=== PATIENT | female | born 1980 | race Caucasian/White ===

== ENCOUNTER 2016-09-13 22:53 | Emergency (ER) | payer OTHER ==
[~2016-09-13] VITALS: Ht 165.1 cm; Wt 125.0 kg
[~2016-09-13 22:53] MED LIST: LAMICTAL 25MG T25 MG PO; LEXAPRO20 MG PO; UNISOM25 MG PO
[2016-09-13 23:08] VITALS: BP 136/69; TEMP 97.8
[2016-09-13] MEDS ORDERED: PREDNISONE20 MG PO (23:37)
[2016-09-13] MEDS ORDERED: ZITHROMAX 250M250 MG PO (23:37)
[2016-09-14 00:19] VITALS: PULSE 114
== END 2016-09-14 00:19 | disposition home or self-care (01) ==
LOC: COL.ER 22:53
DX: J45.901 Unspecified asthma with (acute) exacerbation (principal); J20.9 Acute bronchitis, unspecified; F17.210 Nicotine dependence, cigarettes, uncomplicated
CPT/HCPCS: J7512

== ENCOUNTER 2016-11-30 17:16 | Emergency (ER) | payer OTHER ==
[~2016-11-30] VITALS: Ht 165.1 cm; Wt 125.0 kg
[~2016-11-30 17:16] MED LIST changes: +PREDNISONE20 MG PO; +ZITHROMAX 250M250 MG PO
[2016-11-30 17:27] VITALS: TEMP 97.3
[2016-11-30] MEDS ORDERED: ZYRTEC 10MG10 MG PO (17:46)
[2016-11-30] MEDS ORDERED: UNISOM25 MG PO (17:46)
[2016-11-30 18:48] VITALS: BP 129/74; PULSE 46
[2016-11-30] MEDS ORDERED: NORCO 325 MG-51 TAB PO (19:10)
== END 2016-11-30 20:29 | disposition home or self-care (01) ==
LOC: COL.ER 17:16
DX: S42.302A Unspecified fracture of shaft of humerus, left arm, initial encounter for closed fracture (principal); V43.62XA Car passenger injured in collision with other type car in traffic accident, initial encounter
CPT/HCPCS: J2270; J2405; J3010

== ENCOUNTER 2016-12-01 15:39 | Emergency (ER) | payer OTHER ==
[~2016-12-01] VITALS: Ht 152.4 cm; Wt 125.0 kg
[~2016-12-01 15:39] MED LIST changes: +NORCO 325 MG-51 TAB PO; +ZYRTEC 10MG10 MG PO
[2016-12-01 15:40] VITALS: TEMP 98.6
[2016-12-01 17:35] VITALS: BP 121/53; PULSE 52
== END 2016-12-01 17:36 | disposition home or self-care (01) ==
LOC: COL.ER 15:39
DX: S42.352A Displaced comminuted fracture of shaft of humerus, left arm, initial encounter for closed fracture (principal); V49.60XA Unspecified car occupant injured in collision with unspecified motor vehicles in traffic accident, initial encounter; Y92.410 Unspecified street and highway as the place of occurrence of the external cause

== ENCOUNTER → 2016-12-07 | Outpatient (CLI) | payer OTHER ==
[~2016-12-07] MED LIST changes: +FLONASEALLERGY NS; +SINGULAIR 110 MG/TAB PO
== END ==
LOC: COL.RAD 14:44
DX: S42.292A Other displaced fracture of upper end of left humerus, initial encounter for closed fracture (principal); X58.XXXA Exposure to other specified factors, initial encounter

== ENCOUNTER 2016-12-14 11:46 | Day surgery (SDC) | payer OTHER ==
[~2016-12-14] VITALS: Ht 165.1 cm; Wt 129.8 kg
[2016-12-14] VITALS (10 sets, daily range): BP systolic 100–152; BP diastolic 47–76; PULSE 45–100; TEMP 98.6–98.9
[~2016-12-14 11:46] MED LIST changes: -FLONASEALLERGY NS; -SINGULAIR 110 MG/TAB PO
[2016-12-14] MEDS ORDERED: SINGULAIR 110 MG/TAB PO (12:47)
[2016-12-14] MEDS ORDERED: FLONASEALLERGY NS (12:48)
[2016-12-14 16:36] LABS: BASO # 0.1 (0.0-0.2); BASO % 0.9 % (0.0-2.0); EOS # 0.5 (0.0-0.7); EOS % 5.2 % (0-4.0); GRAN # 7.3 (1.4-6.5); GRAN % 70.2 % (42.2-75.2); HEMOGLOBIN 12.3 g/dl (12.5-16.0); LYMPH # 1.7 (1.2-3.4); LYMPH % 16.5 % (20.0-51.0); MEAN CELL VOLUME 93 fl (80.0-100.0); MEAN CORPUSCULAR HEMOGLOBIN 31 pg (27.0-31.0); MEAN CORPUSCULAR HGB CONC 33 g/dl (33.0-37.0); MEAN PLATELET VOLUME 9.3 fl (7.4-10.4); MONO # 0.7 (0.1-0.6); MONO % 6.4 % (1.7-9.3); PLATELET COUNT 346 K/mm3 (130-400); REDCELL DISTRIBUTION WIDTH-CV 13.4 % (11.5-14.5); WHITE BLOOD COUNT 10.4 K/mm3 (4.8-10.8)
[2016-12-14 16:46] LABS: ADJUSTED CALCIUM 9.2 mg/dL (8.4-10.2); ALANINE AMINOTRANSFERASE 28 U/L (9-52); ALBUMIN 3.8 gm/dL (3.5-5.0); ALKALINE PHOSPHATASE 64 U/L (50-136); ANION GAP 9 mmol/L (7-16); BILIRUBIN,TOTAL 0.8 mg/dL (0.0-1.0); BLOOD UREA NITROGEN 11 mg/dL (7-17); CARBON DIOXIDE 27 mmol/L (22-30); CHLORIDE 99 mmol/L (98-107); CREATININE, serum 0.74 mg/dL (0.52-1.25); GLUCOSE 90 mg/dL (74-106); MAGNESIUM 1.7 mg/dL (1.6-2.3); POTASSIUM 4.4 mmol/L (3.4-5.0); SODIUM 135 mmol/L (137-145); TOTAL PROTEIN 6.9 gm/dL (6.4-8.2)
[2016-12-14 17:57] LABS: TROPONIN-I < 0.012 ng/mL (0.000-0.034)
== END 2016-12-14 19:39 | disposition home or self-care (01) ==
LOC: SDCO 11:46 → SURG 17:25 → SDCO 19:39
PROVIDERS: Internal Medicine
DX: S42.352A Displaced comminuted fracture of shaft of humerus, left arm, initial encounter for closed fracture (principal); Z53.09 Procedure and treatment not carried out because of other contraindication; R00.8 Other abnormalities of heart beat; I49.3 Ventricular premature depolarization; E66.01 Morbid (severe) obesity due to excess calories; V49.9XXA Car occupant (driver) (passenger) injured in unspecified traffic accident, initial encounter
CPT/HCPCS: OP; C1713; C1769; J0690; J1100; J2405; J2704; J3010; J7120